=== PATIENT | male | born 1940 | race Caucasian/White ===

== ENCOUNTER 2019-05-13 09:00 | Emergency (ER) | payer OTHER ==
[~2019-05-13] VITALS: Ht 190.5 cm; Wt 97.5 kg
--- NOTE | 2019-05-13 09:00 | NUR ---
Patient to ER bed 03 to gown for evaluation. Side rails up.
--- NOTE | 2019-05-13 09:03 | NUR ---
Patient brought in by ambulance in the ED c/o bleeding on the biopsy site of the right calf that started this morning. Bleeding currently controlled, EBL per paramedics 50mL. Denied any chest pain or shortness of breath. Denied any fevers, chills, nausea or vomiting. Patient is alert and oriented x4, respirations even and unlabored, speaking in full sentences and ambulating with a steady gait. VSS and pain level 0/10. Informed of approximate wait time. Instructed to notify ED staff [place] for any changes in condition or worsening of symptoms. Patient verbalized understanding.
--- NOTE | 2019-05-13 09:05 | NUR ---
ER Dr. Thurman at bedside examining patient.
[2019-05-13 09:07] VITALS: BP_SYST 133
--- NOTE | 2019-05-13 09:10 | NUR ---
Cleansed wound with NS and patted dry as ordered by Dr. Thurman. Patient tolerated the procedure well.
[2019-05-13] MEDS ORDERED: SILVER NITRATE APPLICATOR 1 STICK STICK..EA. TP ONE (09:15)
--- NOTE | 2019-05-13 09:20 | NUR ---
Dr. Thurman at bedside applying silver nitrate to the biopsy site. Patient tolerated the medication well.
--- NOTE | 2019-05-13 09:35 | NUR ---
e d tech at bedside collecting blood specimen as ordered by Dr. Thurman. Patient tolerated the procedure well.
[2019-05-13 09:47] LABS: BASOPHILS # (AUTO) 0.1 K/uL (0.0-0.2); BASOPHILS % (AUTO) 0.8 % (0.0-2.0); EOSINOPHILS # (AUTO) 0.3 K/uL (0.0-0.4); EOSINOPHILS % (AUTO) 4.2 % (0.0-4.0); HEMATOCRIT 45.7 % (36-54); HEMOGLOBIN 15.8 g/dL (14.0-18.0); LYMPHOCYTES # (AUTO) 1.2 K/uL (1.0-5.5); LYMPHOCYTES % (AUTO) 16.4 % (20.5-51.5); MEAN CORPUSCULAR HEMOGLOBIN 33 pg (27-31); MEAN CORPUSCULAR HGB CONC 35 % (32-36); MEAN CORPUSCULAR VOLUME 95 fL (79.0-98.0); MONOCYTES # (AUTO) 0.8 K/uL (0.0-1.0); MONOCYTES % (AUTO) 10.2 % (1.7-9.3); NEUTROPHILS % (AUTO) 68.4 % (40.0-70.0); PLATELET COUNT (AUTO) 147 K/uL (130-430); RED BLOOD CELL COUNT(AUTO) 4.84 MIL/uL (4.2-6.2); RED CELL DISTRIBUTION WIDTH 13.3 % (9.0-15.0); WHITE BLOOD COUNT (AUTO) 7.4 K/uL (4.8-10.8)
[2019-05-13 10:03] LABS: INR 1.1 (0.80-1.20); PROTHROMBIN TIME 10.6 SECS (9.5-12.5)
[2019-05-13 10:42] VITALS: BP_SYST 133
--- NOTE | 2019-05-13 10:50 | NUR ---
Patient given written and verbal discharge instructions and verbalizes understanding. ER MD discussed with patient the results and treatment provided. Patient in stable condition. ID arm band removed. No Rx given. Patient educated on pain management and to follow up with PMD. Pain Scale 0/10. Opportunity for questions provided and answered. Medication side effect fact sheet provided.
== END 2019-05-13 10:50 | disposition home or self-care (01) ==
LOC: SED 09:00
DX: S81.801A Unspecified open wound, right lower leg, initial encounter (principal); I10 Essential (primary) hypertension; X58.XXXA Exposure to other specified factors, initial encounter; Y93.89 Activity, other specified; Y92.89 Other specified places as the place of occurrence of the external cause; Y99.8 Other external cause status
CPT/HCPCS: 36415; 85025; 85610-TC; 85730-TC; 99283